=== PATIENT | female | born 1995 | race Caucasian/White ===

== ENCOUNTER 2017-04-21 06:12 | Day surgery (SDC) | payer OTHER ==
[~2017-04-21] VITALS: Ht 162.6 cm; Wt 101.2 kg
[~2017-04-21 06:12] MED LIST: CEFP200 PO; IBUP800 PO; LABE200 PO; METF500 PO; METO10 PO; RANI150 PO; Sprintec1 EACH; Verotin-Gr Cap1 EACH
== END 2017-04-21 09:54 | disposition home or self-care (01) ==
LOC: ORSCSDS 06:12
PROVIDERS: Obstetrics & Gynecology
PROC: 0UT74ZZ Resection of Bilateral Fallopian Tubes, Percutaneous Endoscopic Approach (ICD-10-PCS; principal; 2017-04-21 07:30)
DX: Z30.2 Encounter for sterilization (principal); E66.01 Morbid (severe) obesity due to excess calories; Z68.38 Body mass index [BMI] 38.0-38.9, adult; F17.210 Nicotine dependence, cigarettes, uncomplicated
CPT/HCPCS: 88302; J0171; J1100; J1885; J2250; J2405; J2710; J3010; J7120

== ENCOUNTER → 2018-09-20 | Outpatient (CLI) | payer OTHER | END | disposition home or self-care (01) | LOC: LAB SHORT 09:00 → LAB 09:00 | DX: K92.1 Melena (principal); R00.0 Tachycardia, unspecified | CPT/HCPCS: 87015; 87045; 87046; 87205; 87899 ==

== ENCOUNTER → 2021-12-19 | Outpatient (CLI) | payer OTHER ==
[2021-12-21 17:05] LABS: Adenovirus F 40/41 Not Detected (NOT DETECT); Astrovirus Not Detected (NOT DETECT); Campylobacter Sp Not Detected (NOT DETECT); Cryptosporidium Not Detected (NOT DETECT); Cyclospora Cayetanensis Not Detected (NOT DETECT); E. Coli O157 Not Detected (NOT DETECT); Entamoeba Histolytica Not Detected (NOT DETECT); Enteroaggregative E. coli-EAEC Not Detected (NOT DETECT); Enteropathogenic E. coli-EPEC Not Detected (NOT DETECT); Enterotoxigenic E. coli-ETEC Not Detected (NOT DETECT); Giardia Lamblia Not Detected (NOT DETECT); Norovirus GI/GII Not Detected (NOT DETECT); Plesiomonas Shigelloides Not Detected (NOT DETECT); Rotavirus A Not Detected (NOT DETECT); Salmonella Sp Not Detected (NOT DETECT); Sapovirus Not Detected (NOT DETECT); Shiga Toxin-prod E. coli-STEC Not Detected (NOT DETECT); Shigella/Enteroin E. coli-EIEC Not Detected (NOT DETECT); Vibrio Cholerae Not Detected (NOT DETECT); Vibrio Sp Not Detected (NOT DETECT); Yersinia Enterocolitica Not Detected (NOT DETECT)
[2021-12-22 11:06] LABS: Stool Occult Bld Immuno 1 Negative (NEGATIVE)
== END | disposition home or self-care (01) ==
LOC: LAB SHORT 15:00 → LAB 15:00
PROVIDERS: Nurse Practitioner Family
DX: K92.1 Melena (principal)
CPT/HCPCS: 82274; 87507

== ENCOUNTER → 2021-12-22 | Outpatient (CLI) | payer OTHER | END | disposition home or self-care (01) | LOC: LAB SHORT 11:35 → LAB 11:35 | PROVIDERS: Obstetrics & Gynecology | DX: Z01.419 Encounter for gynecological examination (general) (routine) without abnormal findings (principal) | CPT/HCPCS: G0123 ==

== ENCOUNTER 2023-01-19 09:00 | Emergency (ER) | payer OTHER ==
[~2023-01-19] VITALS: Ht 160 cm; Wt 93.0 kg
[2023-01-19 09:58] VITALS: BP 155/95
== END 2023-01-19 11:05 | disposition home or self-care (01) ==
LOC: ER 09:00
DX: M79.675 Pain in left toe(s) (principal); Z87.891 Personal history of nicotine dependence
CPT/HCPCS: 73660; 99283-25